=== PATIENT | male | born 1975 | race Caucasian/White ===

== ENCOUNTER 2018-01-27 13:13 | Emergency (ER) | payer OTHER ==
[2018-01-27 13:26] VITALS: BMI 30.7
--- NOTE | 2018-01-27 14:07 | PDOC ---
History of Present Illness - General Chief Complaint: Blood Pressure Problem Stated Complaint: ELEVATED BP Time Seen by Provider: 01/27/18 13:46 History Source: Patient - History of Present Illness Initial Comments: 01/27/18 14:39 Best Contact:[phone] PCP:Dr. Chávez/.[place] Pmhx: Rheumatic fever as a child, asthma Pshx: 2011: Left Achilles tendon repair Allergies: Aspirin/penicillin: Facial swelling FH: Mother 74 years old/lungs [place], cervical CVA: Father 82 years old healthy Social Hx: Cigarettes/ 0 Alcohol/ 0 Drugs/0 LMP:N/A 01/27/18 14:41 42-year-old male presents to the emergency department complaining of possible hypertension. Patient states he is visiting from [place] for the next 3 weeks and was using his mother's blood pressure machine. Patient states his blood pressure today which she took twice was 141/92 then 2 hours later he took it again and it was 146/92. Patient states he's been complaining of bitemporal bandlike frontal headache since 3 days without confusion, dizziness, lightheadedness, facial pain, rhinorrhea, nasal congestion, earache, sore throat , chest pain, shortness of breath, neck pain/stiffness, back pain, abdominal pains, bladder or bowel dysfunction. Past History - Past Medical History Allergies/Adverse Reactions: Allergies Allergy/AdvReac Type Severity Reaction Status Date / Time aspirin Allergy Severe Swelling Verified 01/27/18 13:20 Penicillins Allergy Severe Swelling Verified 01/27/18 13:20 Home Medications: Ambulatory Orders NK [No Known Home Medication] 01/27/18 Asthma: Yes COPD: No - Immunization History Immunization Up to Date: Yes - Suicide/Smoking/Psychosocial Hx Smoking History: Never smoked Hx Alcohol Use: No Drug/Substance Use Hx: No Review of Systems - Review of Systems Able to Perform ROS?: Yes Comments:: 01/27/18 14:40 GENERAL: Well developed, well nourished. Awake and alert. No acute distress. HEENT: Normocephalic, atraumatic. PERRLA, EOMI. No conjunctival pallor. Sclera are non- icteric. Moist mucous membranes. Oropharynx is clear. NECK: Supple. Full ROM. No JVD. Carotid pulses 2+ and symmetric, without bruits. No thyromegaly. No lymphadenopathy. CARDIOVASCULAR: Regular rate and rhythm. No murmurs, rubs, or gallops. Distal pulses are 2+ and symmetric. PULMONARY: No evidence of respiratory distress. Lungs clear to auscultation bilaterally. No wheezing, rales or rhonchi. ABDOMINAL: Soft. Non-tender. Non-distended. No rebound or guarding. No organomegaly. Normoactive bowel sounds. MUSCULOSKELETAL Normal range of motion at all joints. No bony deformities or tenderness. No CVA tenderness. EXTREMITIES: No cyanosis. No clubbing. No edema. No calf tenderness. SKIN: Warm and dry. Normal capillary refill. No rashes. No jaundice. NEUROLOGICAL: +Bitemporal bandlike wang Alert, awake, appropriate. Cranial nerves 2-12 intact. No deficits to light touch and temperature in face, upper extremities and lower extremities. No motor deficits in the in face, upper extremities and lower extremities. Normoreflexic in the upper and lower extremities. Normal speech. Toes are down- going bilaterally. Gait is normal without ataxia. PSYCHIATRIC: Cooperative. Good eye contact. Appropriate mood and affect. Is the patient limited [place] proficient: No *Physical Exam - Vital Signs Last Vital Signs Temp Pulse Resp BP Pulse Ox 98.3 F 65 18 141/98 100 01/27/18 13:23 01/27/18 13:23 01/27/18 13:23 01/27/18 13:23 01/27/18 13:23 - Physical Exam Comments: 01/27/18 14:40 GENERAL: Well developed, well nourished. Awake and alert. No acute distress. HEENT: Normocephalic, atraumatic. PERRLA, EOMI. No conjunctival pallor. Sclera are non- icteric. Moist mucous membranes. Oropharynx is clear. NECK: Supple. Full ROM. No JVD. Carotid pulses 2+ and symmetric, without bruits. No thyromegaly. No lymphadenopathy. CARDIOVASCULAR: Regular rate and rhythm. No murmurs, rubs, or gallops. Distal pulses are 2+ and symmetric. PULMONARY: No evidence of respiratory distress. Lungs clear to auscultation bilaterally. No wheezing, rales or rhonchi. ABDOMINAL: Soft. Non-tender. Non-distended. No rebound or guarding. No organomegaly. Normoactive bowel sounds. MUSCULOSKELETAL Normal range of motion at all joints. No bony deformities or tenderness. No CVA tenderness. EXTREMITIES: No cyanosis. No clubbing. No edema. No calf tenderness. SKIN: Warm and dry. Normal capillary refill. No rashes. No jaundice. NEUROLOGICAL: Alert, awake, appropriate. Cranial nerves 2-12 intact. No deficits to light touch and temperature in face, upper extremities and lower extremities. No motor deficits in the in face, upper extremities and lower extremities. Normoreflexic in the upper and lower extremities. Normal speech. Toes are down- going bilaterally. Gait is normal without ataxia. PSYCHIATRIC: Cooperative. Good eye contact. Appropriate mood and affect. 01/27/18 14:41 Heart Score/ECG Review - History History: Slightly suspicious - Electrocardiogram EKG: Normal - Age Age: >/= 65 - Risk Factors Based on the list above the patient has:: No risk factors known - ECG Intrepretation Rhythm: Regular Rhythm - [place]: Normal ED Treatment Course - LABORATORY CBC & Chemistry Diagram: 01/27/18 14:00 01/27/18 14:00 - RADIOLOGY Radiograph Interpretation: 01/27/18 16:42 CT head w/o contrast: neg Medical Decision Making - Medical Decision Making 01/27/18 14:37 42-year-old male presents to the emergency department complaining of slight hypertension after taking his blood pressure with his mother's blood pressure machine at home. Patient states his blood pressure has been 140-146 systolic with a diastolic of 90-92. Patient states he was concerned about possibly being hypersensitive but denies any family history of hypertension.. Hypertensive workup in the emergency department which consists of CBC/chemistry , thyroid and UA. All benign. EKG shows normal sinus rhythm at the rate is 71 no ectopy. Patient informed that his initial hypertension workup was normal and he needs to follow with his PMD. *DC/Admit/Observation/Transfer Diagnosis at time of Disposition: Blood pressure check - Discharge Dispostion Disposition: HOME Condition at time of disposition: Stable Decision to Admit order: No - Referrals Referrals: ON STAFF,NOT [Primary Care Provider] - Marcelino Yates MD [Staff Physician] - - Patient Instructions Printed Discharge Instructions: DI for High Blood Pressure Additional Instructions: I have discussed strict instructions to cut back your salt fried food and any alcohol from diet for the next few days and to have blood pressure checked in about 3 days. Also please to return to the ED if symptoms worsen or return. - Post Discharge Activity Progress Note - Progress Note Progress Note: 0255hrs: Right arm blood pressure/sittin/107 Left arm 162/113 Endorsed to CHASE Cooper
[2018-01-27 14:20] LABS: BASO % 0.7 % (0-2.0); EOS % 1.6 % (0-4.5); HEMATOCRIT 44.7 % (35.4-49); HEMOGLOBIN 14.8 GM/dL (11.7-16.9); LYMPH % 30.3 % (8-40); MCH 28.8 pg (25.7-33.7); MCHC 33.2 g/dl (32.0-35.9); MEAN CELL VOLUME 86.7 fl (80-96); MEAN PLT VOLUME 8.6 fl (7.5-11.1); MONO % 8.4 % (3.8-10.2); PLATELET COUNT 263 K/MM3 (134-434); RBC 5.16 M/mm3 (4.00-5.60); RDW 13.9 % (11.9-15.9); WHITE BLOOD COUNT 5.2 K/mm3 (4.0-10.0)
[2018-01-27 14:24] LABS: URINE APPEARANCE CLEAR; URINE BILIRUBIN NEGATIVE (<2.0 mg/dL); URINE COLOR LTYELLOW; URINE GLUCOSE (UA) NEGATIVE (NEGATIVE); URINE KETONE NEGATIVE (NEGATIVE); URINE LEUK ESTERASE NEGATIVE (NEGATIVE); URINE NITRITE NEGATIVE (NEGATIVE); URINE PROTEIN NEGATIVE (NEGATIVE); URINE UROBILINOGEN NEGATIVE mg/dL (0.2-1.0)
[2018-01-27] MEDS ORDERED: ACETAMINOPHEN 500 MG TABLET (FP) PO ONE (14:38)
[2018-01-27] MEDS ORDERED: ACETAMINOPHEN 500 MG TABLET (FP) ONE (14:41)
[2018-01-27 14:42] LABS: ANION GAP 6 (8-16); BILIRUBIN,TOTAL 0.6 mg/dL (0.2-1.0); BLOOD UREA NITROGEN 12 mg/dL (7-18); CALCIUM 8.6 mg/dL (8.5-10.1); CHLORIDE 105 mmol/L (98-107); CO2 28 mmol/L (21-32); CREATININE 0.8 mg/dL (0.7-1.3); GLUCOSE,RANDOM 86 mg/dL (74-106); POTASSIUM 4.5 mmol/L (3.5-5.1); SGOT/AST 15 U/L (15-37); SGPT/ALT 32 U/L (12-78); SODIUM 139 mmol/L (136-145); TOT PROT 7.6 g/dl (6.4-8.2)
[2018-01-27 14:50] LABS: ALK PHOS 96 U/L (45-117)
--- NOTE | 2018-01-27 17:14 | PDOC ---
*Physical Exam - Vital Signs Last Vital Signs Temp Pulse Resp BP Pulse Ox 98.3 F 65 18 141/98 100 01/27/18 13:23 01/27/18 13:23 01/27/18 13:23 01/27/18 13:23 01/27/18 13:23 ED Treatment Course - LABORATORY CBC & Chemistry Diagram: 01/27/18 14:00 01/27/18 14:00 - ADDITIONAL ORDERS Additional order review: Laboratory Results 01/27/18 01/27/18 14:00 14:00 Sodium 139 Potassium 4.5 Chloride 105 Carbon Dioxide 28 Anion Gap 6 L BUN 12 Creatinine 0.8 Creat Clearance w eGFR > 60 Random Glucose 86 Calcium 8.6 Total Bilirubin 0.6 AST 15 ALT 32 Alkaline Phosphatase 96 Total Protein 7.6 Albumin 4.0 TSH 1.11 Urine Color Ltyellow Urine Appearance Clear Urine pH 5.0 Ur Specific [place] 1.010 Urine Protein Negative Urine Glucose (UA) Negative Urine Ketones Negative Urine Blood Negative Urine Nitrite Negative Urine Bilirubin Negative Urine Urobilinogen Negative Ur Leukocyte Esterase Negative 01/27/18 14:00 RBC 5.16 MCV 86.7 MCHC 33.2 RDW 13.9 MPV 8.6 Neutrophils % 59.0 Lymphocytes % 30.3 Monocytes % 8.4 Eosinophils % 1.6 Basophils % 0.7 - Medications Given in the ED: ED Medications Discontinued Medications Generic Name Dose Route Start Last Admin Trade Name Nomanq PRN Reason Stop Dose Admin Acetaminophen 1,000 mg 01/27/18 14:38 01/27/18 14:42 Tylenol - PO 01/27/18 14:39 1,000 mg ONCE ONE Administration Medical Decision Making - Medical Decision Making 01/27/18 17:14 Patient received signout from NATALIE ha. Patient with complaints of elevated blood pressure and headache. Patient had normal labs and head CT but with noted elevated diastolic. We will observe and see if blood pressure improves 01/27/18 17:58 Patient states feeling much better. Repeat blood pressure 140/91. Patient given strict instructions to cut back his salt fried food and any alcohol from diet for the next few days and to have his blood pressure checked in about 3 days. Patient also instructed to return to the ED if symptoms worsen or return *DC/Admit/Observation/Transfer Diagnosis at time of Disposition: Blood pressure check - Discharge Dispostion Disposition: HOME Condition at time of disposition: Stable - Referrals Referrals: ON STAFF,NOT [Primary Care Provider] - Marcelino Yates MD [Staff Physician] - - Patient Instructions Printed Discharge Instructions: DI for High Blood Pressure Additional Instructions: I have discussed strict instructions to cut back your salt fried food and any alcohol from diet for the next few days and to have blood pressure checked in about 3 days. Also please to return to the ED if symptoms worsen or return. - Post Discharge Activity
[2018-01-27 17:55] VITALS: BP 140/91; PULSE 85; TEMP 98
--- NOTE | 2018-01-28 13:35 | EKG ---
Test Reason : Blood Pressure : / mmHG Vent. Rate : 071 BPM Atrial Rate : 071 BPM P-R Int : 152 ms QRS Dur : 096 ms QT Int : 390 ms P-R-T Axes : 005 009 014 degrees QTc Int : 423 ms NORMAL SINUS RHYTHM NORMAL ECG NO PREVIOUS ECGS AVAILABLE Confirmed by MD Gurinder, Deric ([id number]) on 01/28/2018 1:35:25 PM Referred By: Confirmed By:Deric Fairchild MD
== END 2018-01-27 18:01 | disposition home or self-care (01) ==
LOC: JER 13:13 → JERFT 13:13 → JER 18:01
DX: Z01.30 Encounter for examination of blood pressure without abnormal findings (principal); Z87.09 Personal history of other diseases of the respiratory system
CPT/HCPCS: 36415; 70450-TC; 80053; 81003; 84443; 85025; 93005; 93010; 99282-25